=== PATIENT | male | born 1995 | race Hispanic/Latino ===

== ENCOUNTER 2021-05-09 12:05 | Emergency (ER) | payer OTHER ==
[~2021-05-09] VITALS: Ht 175.3 cm; Wt 71.3 kg
[2021-05-09] MEDS ORDERED: HYDR-4570 PO (12:47)
[2021-05-09] MEDS ORDERED: PARO20TA4 PO (12:47)
[2021-05-09] MEDS ORDERED: ONDANSETRON 4 MG ORAL DISINTEGRATING TAB PO ONE (17:30)
[2021-05-09] MEDS ORDERED: NS 1,000 ML IV ONE (18:25)
[2021-05-09 18:43] LABS: BASO % 0.3 % (0.0-1.0); EOS # 0.2 10^3/uL (0.0-0.5); EOS % 2.1 % (0.0-3.0); HEMOGLOBIN 16.1 g/dl (13.5-17.5); LYMPH # 1.5 10^3/uL (1.5-5.0); LYMPH % 16.6 % (24.0-44.0); MEAN CORPUSCULAR HEMOGLOBIN 30.5 pg (27.0-33.0); MEAN CORPUSCULAR HGB CONC 33.5 g/dl (32.0-36.5); MEAN CORPUSCULAR VOLUME 90.9 fl (80.0-96.0); MONO # 0.8 10^3/uL (0.0-0.8); MONO % 8.1 % (2.0-8.0); NEUTROPHILS # 6.7 10^3/uL (1.5-8.5); NEUTROPHILS % 72.7 % (36.0-66.0); PLATELET COUNT, AUTOMATED 259 10^3/uL (150-450); RED BLOOD COUNT 5.28 10^6/uL (4.30-6.10); WHITE BLOOD COUNT 9.3 10^3/uL (4.0-10.0)
[2021-05-09 19:04] LABS: BLOOD UREA NITROGEN 13 MG/DL (7-18); CALCIUM LEVEL 9.2 MG/DL (8.5-10.1); CARBON DIOXIDE LEVEL 30 MEQ/L (21-32); CHLORIDE LEVEL 105 MEQ/L (98-107); CREATININE FOR GFR 1.03 MG/DL (0.70-1.30); GLOMERULAR FILTRATION RATE > 60.0 (>60); GLUCOSE, FASTING 90 MG/DL (70-100); POTASSIUM SERUM 4.3 MEQ/L (3.5-5.1); SODIUM LEVEL 141 MEQ/L (136-145)
[2021-05-09] MEDS ORDERED: ONDA4TAB6 PO (20:03)
[2021-05-09] MEDS ORDERED: BENZ200C70 PO (20:03)
[2021-05-09 20:10] VITALS: BP 127/70
== END 2021-05-09 20:11 | disposition home or self-care (01) ==
LOC: M ED 12:05
DX: B34.8 Other viral infections of unspecified site (principal); F41.8 Other specified anxiety disorders; F32.A Depression, unspecified; F17.200 Nicotine dependence, unspecified, uncomplicated
CPT/HCPCS: 80048; 85025; 87798; 99284; Q0162

== ENCOUNTER 2022-05-28 16:42 | Inpatient (IN) | payer OTHER ==
[~2022-05-28] VITALS: Ht 175.3 cm; Wt 81.6 kg
[~2022-05-28 16:42] MED LIST: BENZ200C70 PO; HYDR-4570 PO; ONDA4TAB6 PO; PARO20TA4 PO
[2022-05-28 17:27] LABS: MEAN CORPUSCULAR HEMOGLOBIN 30.7 pg (27.0-33.0); PLATELET COUNT, AUTOMATED 344 10^3/uL (150-450); RED BLOOD COUNT 5.22 10^6/uL (4.30-6.10); WHITE BLOOD COUNT 9.5 10^3/uL (4.0-10.0)
[2022-05-28] MEDS ORDERED: HYDR50CA2 PO (17:33)
[2022-05-28] MEDS ORDERED: PARO30TA3 PO (17:33)
[2022-05-28 17:51] LABS: AMPHETAMINES LEVEL URINE NEGATIVE (NEGATIVE); BARBITURATES URINE NEGATIVE (NEGATIVE); BENZODIAZEPINES URINE NEGATIVE (NEGATIVE); CANNABINOIDS URINE NEGATIVE (NEGATIVE); COCAINE METABOLITE URINE NEGATIVE (NEGATIVE); METHADONE URINE NEGATIVE (NEGATIVE); OPIATES URINE NEGATIVE (NEGATIVE); PHENCYCLIDINE URINE NEGATIVE (NEGATIVE)
[2022-05-28 17:53] LABS: ETHYL ALCOHOL (ETHANOL) < 0.003 % (0.000-0.010)
[2022-05-28 17:55] LABS: ACETAMINOPHEN LEVEL < 2.0 UG/ML (10.0-20.0); SALICYLATE LEVEL < 3.0 MG/DL (<30)
[2022-05-28 17:59] LABS: ALBUMIN 4.6 G/DL (3.2-5.2); ALKALINE PHOSPHATASE 95 U/L (46-116); ALT/SGPT 84 U/L (7.0-40); AST/SGOT 35 U/L (<34); BILIRUBIN,DIRECT 0.1 MG/DL (<0.4); BILIRUBIN,TOTAL 0.6 MG/DL (0.3-1.2); BLOOD UREA NITROGEN 15 MG/DL (9-23); CALCIUM LEVEL 9.4 MG/DL (8.5-10.1); CARBON DIOXIDE LEVEL 31 MMOL/L (20-31); CHLORIDE LEVEL 102 MMOL/L (98-107); CREATININE FOR GFR 0.95 MG/DL (0.70-1.30); GLOMERULAR FILTRATION RATE > 60.0 (>60); GLUCOSE, FASTING 89 MG/DL (60-100); POTASSIUM SERUM 4.3 MMOL/L (3.5-5.1); SODIUM LEVEL 140 MMOL/L (136-145); THYROID STIMULATING HORMONE 0.557 uIU/ML (0.55-4.78); TOTAL PROTEIN 7.4 G/DL (5.7-8.2)
[2022-05-28] MEDS ORDERED: PROA1AER2 INH (18:47)
[2022-05-28] MEDS ORDERED: FEXO-117 PO (18:47)
[2022-05-28] MEDS ORDERED: HOME MED LIST COMPLETE! XX SCH (18:50)
[2022-05-28] MEDS ORDERED: MOM 30ML SUSPENSION UDC PO PRN (19:15)
[2022-05-28] MEDS ORDERED: OLANZapine ORAL DISINTEGRATING TAB 5MG PO PRN (19:15)
[2022-05-28] MEDS ORDERED: ACETAMINOPHEN TAB 650MG DOSE (2X325MG) PO PRN (19:15)
[2022-05-28] MEDS ORDERED: traZODone 50 MG TAB PO PRN (19:15)
[2022-05-28] MEDS ORDERED: MAALOX 30 ML SUSP *UDC PO PRN (19:15)
[2022-05-28 20:40] VITALS: BP 125/76
[2022-05-28] MEDS: hydrOXYzine 50 MG TAB PO SCH (22:12)
[2022-05-28] MEDS: PARoxetine 10MG TABLET PO SCH (22:13)
[2022-05-29 06:29] VITALS: BP 119/69
[2022-05-29] MEDS ORDERED: FEXOFENADINE 60MG TAB PO SCH (09:00)
[2022-05-29] MEDS: FEXOFENADINE 60MG TAB PO SCH (09:40)
[2022-05-29 10:32] LABS: HEMATOCRIT 45.3 % (42.0-52.0); HEMOGLOBIN 15.5 g/dl (13.5-17.5); MEAN CORPUSCULAR HEMOGLOBIN 30.7 pg (27.0-33.0); MEAN CORPUSCULAR HGB CONC 34.2 g/dl (32.0-36.5); MEAN CORPUSCULAR VOLUME 89.7 fl (80.0-96.0); PLATELET COUNT, AUTOMATED 317 10^3/uL (150-450); RED BLOOD COUNT 5.05 10^6/uL (4.30-6.10); WHITE BLOOD COUNT 11.3 10^3/uL (4.0-10.0)
[2022-05-29 10:42] LABS: INR 0.93; PROTHROMBIN TIME 12.7 SECONDS (12.5-14.5)
[2022-05-29 11:22] LABS: HEPATITIS B SURFACE ANTIGEN NEGATIVE (NEGATIVE)
[2022-05-29 11:43] LABS: HEPATITIS B CORE ANTIBODY IGM NEGATIVE (NEGATIVE); HEPATITIS C VIRUS ABY INDEX < 0.0 INDEX (<0.8)
[2022-05-29 11:48] LABS: ALBUMIN 4.2 G/DL (3.2-5.2); ALKALINE PHOSPHATASE 83 U/L (46-116); ALT/SGPT 72 U/L (7.0-40); AST/SGOT 26 U/L (<34); BILIRUBIN,TOTAL 0.7 MG/DL (0.3-1.2); BLOOD UREA NITROGEN 17 MG/DL (9-23); CALCIUM LEVEL 9.8 MG/DL (8.5-10.1); CARBON DIOXIDE LEVEL 33 MMOL/L (20-31); CHLORIDE LEVEL 105 MMOL/L (98-107); CREATININE FOR GFR 1.14 MG/DL (0.70-1.30); GLOMERULAR FILTRATION RATE > 60.0 (>60); GLUCOSE, FASTING 99 MG/DL (60-100); POTASSIUM SERUM 4.6 MMOL/L (3.5-5.1); SODIUM LEVEL 143 MMOL/L (136-145); TOTAL PROTEIN 6.8 G/DL (5.7-8.2)
[2022-05-29 16:06] VITALS: BP 141/86
[2022-05-29] MEDS ORDERED: PARoxetine 10MG TABLET PO SCH ×2 (21:00)
[2022-05-29] MEDS ORDERED: hydrOXYzine 50 MG TAB PO SCH ×2 (21:00)
[2022-05-29] MEDS: hydrOXYzine 50 MG TAB PO SCH (21:34)
[2022-05-29] MEDS: PARoxetine 10MG TABLET PO SCH (21:35)
[2022-05-30 07:03] VITALS: BP 137/68
[2022-05-30] MEDS: FEXOFENADINE 60MG TAB PO SCH (10:36)
[2022-05-30 18:31] VITALS: BP 141/88
[2022-05-30] MEDS: hydrOXYzine 50 MG TAB PO SCH (21:17)
[2022-05-30] MEDS: PARoxetine 10MG TABLET PO SCH (21:17)
[2022-05-31 06:16] VITALS: BP 132/72
[2022-05-31] MEDS ORDERED: HYDR50CA2 PO (08:24)
[2022-05-31] MEDS ORDERED: PARO30TA3 PO (08:24)
== END 2022-05-31 09:06 | disposition home or self-care (01) | DRG 882 ==
LOC: M ED 16:42 → EDBD 16:42 → M ED INP 19:14 → M PSY 20:15
PROVIDERS: ADMIT Student in an Organized Health Care Education/Training Program; ATTEND Student in an Organized Health Care Education/Training Program
DX: F43.23 Adjustment disorder with mixed anxiety and depressed mood (principal); M54.50 Low back pain, unspecified; Z79.899 Other long term (current) drug therapy

== ENCOUNTER → 2022-10-06 | Outpatient (CLI) | payer OTHER ==
[~2022-10-06] MED LIST changes: +FEXO-117 PO; +HYDR50CA2 PO; +PARO30TA3 PO; +PROA1AER2 INH
== END ==
LOC: M PLAIMG 10:44
PROVIDERS: ATTEND Internal Medicine
DX: M51.37 Other intervertebral disc degeneration, lumbosacral region (principal); R06.02 Shortness of breath